=== PATIENT | male | born 1980 | race Caucasian/White ===

== ENCOUNTER 2017-05-17 21:18 | Emergency (ER) | payer MEDICAID, SELFPAY ==
[2017-05-17 21:21] VITALS: BP 128/99; PULSE 67; RESP 16; TEMP 36.9; O2SAT 100; BMI 20.7
--- NOTE | 2017-05-17 21:27 | XR_ITS ---
XR tibia fibula RT 2V CLINICAL INDICATION: Pain following injury ITS.REASON: INJURY ORDERING PHYSICIAN: Nathaniel Hobbs MD PATIENT AGE: 37 years COMPARISON: None FINDINGS: There is a severely comminuted fracture involving the proximal tibia with both transverse and longitudinal components with a longitudinal component extending in the articular surface centrally and along the medial tibial plateau. There is moderate impaction of the fracture fragments. The lateral tibial fracture fragment is displaced laterally x 15 mm. There is nondisplaced proximal fibular fracture also noted. IMPRESSION: Comminuted displaced and impacted proximal tibial fracture with intra-articular extension Nondisplaced fibular head fracture
--- NOTE | 2017-05-17 21:49 | HMH.EDEXTP ---
ED Disposition Clinical Impression: Fracture of tibial plateau, closed Qualifiers: Encounter type: initial encounter Laterality: right Qualified Code(s): S82.141A - Displaced bicondylar fracture of right tibia, initial encounter for closed fracture Disposition: Xfer Short-Term Hosp Condition on Discharge: Serious Additional Instructions: will send to [facility] Referrals: Nathaniel Hobbs MD [Primary Care Provider] - - Critical Care Critical Care Time: No Attestation: On 05/17/17, the high probability of a clinically significant, sudden or life threatening deterioration of the following system(s) required my full and direct attention, intervention and personal management. The time I documented below is in addition to time spent performing reported procedures but includes the following listed in this critical care notation. Medical Decision Making - Medical Records Medical records reviewed: Yes: I reviewed the patient's medical records. Vital Signs: 05/17/17 21:21 Temperature 98.4 F Temperature Source Oral Pulse Rate [Right Brachial] 67 Respiratory Rate 16 Blood Pressure [Right Arm] 128/99 Blood Pressure Mean [Right Arm] 108 Blood Pressure Source [Right Arm] Automatic Cuff Blood Pressure Position [Right Arm] Sitting 02 Sat by Pulse Oximetry 100 Oxygen Delivery Method Room Air - Lab Data Lab results reviewed: Yes: I reviewed the patient's lab results. Orders (Tests/Meds): ED MEDICATIONS Discontinued Medications Generic Name Dose Route Start Last Admin Trade Name Freq PRN Reason Stop Dose Admin Ketorolac Tromethamine 30 mg 05/17/17 21:53 05/17/17 21:58 Toradol 30mg/Ml Vial IV 05/17/17 21:54 30 mg ONCE ONE Administration Morphine Sulfate 4 mg 05/17/17 21:54 05/17/17 21:58 Morphine 5mg/Ml Syringe IV 05/17/17 21:55 4 mg ONCE ONE Administration ORDERS Category Date Time Status XR tibia fibula RT 2V Stat Exams 05/17/17 21:27 Taken - Radiology Data #1 Image(s): Tib/Fib Image Reviewed: Yes I reviewed the patient's radiology image Preliminary Findings: Abnormal ([id number] fx ) - Physician Consults Physician Consulted: hallie Reason -: Pt condition - Nikko Inquiry Pt receiving controlled substance: No Extremity Problem HPI - General Chief complaint: Extremity Injury, Lower Stated complaint: AO 2.2 2030 Right Leg Injury Time Seen by Provider: 05/17/17 21:49 Mode of Arrival: Ambulatory Source of Information: Patient, Significant Other, Medical Record Limitations: No Limitations Description of Symptoms (Recalled from ER Triage Doc. by RN): RIGHT TIB/FIB PAIN. WAS CARRYING THROUGH HOUSE AND LEG BUCKLED - History of Present Illness HPI Narrative: pt was carring and slipped with rt knee injury MD Complaint: extremity pain, extremity swelling, joint swelling, joint paint Onset (ago): hour(s) Consistency: constant Location: right Radiation: proximal - Related Data Home Medications Medication Instructions Recorded Confirmed No Known Home Medications [No 05/17/17 05/17/17 Known Home Medications] Allergies Allergy/AdvReac Type Severity Reaction Status Date / Time NKDA Allergy Unknown Uncoded 04/02/17 14:34 [facility] History I have reviewed the patient's past medical history: Yes - *Social History Smoking Status: Current every day smoker Tobacco Type: cigarettes Alcohol Intake: never - Psychiatric History Expresses thoughts of harming self/others: None Suicide Plan Description: No Plan ROS Obtained: Yes All systems reviewed & no additional complaints - Constitutional Constitutional: Denies fever(s) - Eyes Eyes: Denies change in vision - ENT Ears, Nose, Mouth, and Throat: Denies sore throat - Cardiovascular Cardiovascular: Denies chest pain at rest - Respiratory Respiratory: No chest congestion - Gastrointestinal Gastrointestingal: Denies: abdominal pain - Musculoskeletal Musculoskeletal:
--- NOTE | 2017-05-17 21:53 | PC.NURSE ---
dr hallie davis
--- NOTE | 2017-05-17 21:55 | PC.NURSE ---
DR NEVILLE SPEAKING WITH DR BETTS.
--- NOTE | 2017-05-17 22:09 | PC.NURSE ---
DR NEVILLE SPEAKING WITH [facility].
[2017-05-17 22:44] VITALS: BP 111/59; PULSE 52; RESP 16; TEMP 36.6; O2SAT 100
== END 2017-05-17 22:45 | disposition short-term general hospital (02) ==
PROVIDERS: Emergency Provider Emergency Medicine; Family Provider Physician Assistant; PCP Emergency Medicine
DX: S82.141A Displaced bicondylar fracture of right tibia, initial encounter for closed fracture (principal)
CPT/HCPCS: 73590; 96374; 96375; 99282

== ENCOUNTER 2017-08-14 08:30 | Outpatient (RCR) | payer MEDICAID, SELFPAY | END 2017-08-14 08:31 | disposition home or self-care (01) | LOC: PT 08:30 | PROVIDERS: Family Provider Physician Assistant; PCP Emergency Medicine; Visit Provider Physician Assistant Medical | DX: S82.143A Displaced bicondylar fracture of unspecified tibia, initial encounter for closed fracture (principal) | CPT/HCPCS: 97110; 97116; 97140 ==

== ENCOUNTER 2017-09-23 13:55 | Outpatient (RCR) | payer MEDICAID, SELFPAY | END 2017-09-23 13:56 | disposition home or self-care (01) | LOC: PT 13:55 | PROVIDERS: Family Provider Physician Assistant; PCP Emergency Medicine; Visit Provider Orthopaedic Surgery Orthopaedic Trauma | DX: S82.143A Displaced bicondylar fracture of unspecified tibia, initial encounter for closed fracture (principal) | CPT/HCPCS: 97163 ==

== ENCOUNTER 2017-12-12 10:30 | Outpatient (RCR) | payer MEDICAID, SELFPAY | END 2017-12-12 10:31 | disposition home or self-care (01) | LOC: PT 10:30 | PROVIDERS: Family Provider Physician Assistant; PCP Emergency Medicine; Visit Provider Orthopaedic Surgery Orthopaedic Trauma | DX: S82.143A Displaced bicondylar fracture of unspecified tibia, initial encounter for closed fracture (principal) | CPT/HCPCS: 97110; 97163 ==